=== PATIENT | male | born 1950 | race Caucasian/White ===

== ENCOUNTER → 2016-12-29 | Outpatient (CLI) | payer MEDICARE, MEDICAID | LOC: RAD 13:38 | PROVIDERS: ATTEND Internal Medicine | DX: R91.1 Solitary pulmonary nodule (principal) | CPT/HCPCS: 78814; A9552 ==

== ENCOUNTER → 2017-01-29 | Outpatient (CLI) | payer MEDICARE, MEDICAID | LOC: RAD 09:35 | PROVIDERS: ATTEND Internal Medicine Medical Oncology | DX: C34.91 Malignant neoplasm of unspecified part of right bronchus or lung (principal) | CPT/HCPCS: 70553; A9577 ==

== ENCOUNTER 2017-03-09 18:16 | Emergency (ER) | payer MEDICARE, MEDICAID ==
[2017-03-09] MEDS ORDERED: LIDOCAINE 1% INJ-PF (10 MG/ML) 30 ML SDV INJ ONE (18:44)
[2017-03-09] MEDS ORDERED: AMOXICILLIN TRIHYD 250 MG CAPSULE PO ONE (18:44)
[2017-03-09] MEDS ORDERED: AMOXICILLIN TR/POT CLAVULANATE 500-125 MG TAB PO ONE (18:44)
--- NOTE | 2017-03-09 18:49 | ER Document Report ---
ED Animal Bite - General Chief Complaint: Dog Bite Stated Complaint: DOG ATTACK Time Seen by Provider: 03/09/17 18:28 Mode of Arrival: Ambulatory Information source: Patient Notes: States that his granddaughter just got a dog from his nephew and the dog was on a chain that was tangled up. Patient went to untangle the dog and the dog attacked him. Patient with lacerations to left forearm, left hand and right hand. Patient does state his tetanus immunization was 2 years ago. Pt is uncertain of the dog's immunization status but states that the dog otherwise appeared well. TRAVEL OUTSIDE OF THE [place] IN LAST 30 DAYS: No - HPI Location of injury: [place] Severity of injury: Scratched, Bitten Onset: Just prior to arrival Quality of pain: Achy Pain Level: 3 Severity: Moderate Context of attack: Approached animal Type of animal: Dog Appearance of animal: Appeared well Animal's immunizations: Unknown Animal captured or known: Yes Animal control form completed: Yes - Related Data Allergies/Adverse Reactions: No Known Allergies Allergy (Verified 03/09/17 18:21) Past Medical History - General Information source: Patient, Relative - Social History Smoking Status: Current Every Day Smoker Frequency of alcohol use: None Drug Abuse: None Occupation: none Lives with: Spouse/Significant other Family History: Reviewed & Not Pertinent Patient has suicidal ideation: No Patient has homicidal ideation: No Pulmonary Medical History: Reports: Hx Asthma, Hx COPD Renal/ Medical History: Denies: Hx Peritoneal Dialysis Malignancy Medical History: 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 denies: Fever EENT: No symptoms reported Cardiovascular: No symptoms reported. denies: Chest pain Respiratory: Cough. denies: Short of breath Gastrointestinal: No symptoms reported. denies: Nausea, Vomiting Genitourinary: No symptoms reported Male Genitourinary: No symptoms reported Musculoskeletal: No symptoms reported Skin: Other - Laceration to bilateral upper extremities Hematologic/Lymphatic: No symptoms reported Neurological/Psychological: No symptoms reported Physical Exam - Vital signs Vitals: Temp Pulse Resp BP Pulse Ox 98.2 F 100 18 143/79 H 94 03/09/17 18:21 03/09/17 18:21 03/09/17 18:21 03/09/17 18:21 03/09/17 18:21 - General General appearance: Appears well, Alert In distress: None - HEENT Head: Normocephalic Nasal: Normal Mouth/Lips: Normal - Respiratory Respiratory status: No respiratory distress - Cardiovascular Rhythm: Regular Heart sounds: S1 appreciated, S2 appreciated Pulses: Normal: Radial - Extremities General upper extremity: Normal ROM, Other - lac to bilat hand and left forearm General lower extremity: Normal inspection, Normal ROM Forearm: Tender - left forearm lace, Laceration. No: Deformity, Ecchymosis Wrist: Normal, Nontender Hand: Tender, Laceration - to webspace of left hand between 2 and 3rd fingers, lac to dorsal aspect of r 3rd finger over proximal phalanx - Neurological Neuro grossly intact: Yes Cognition: Normal Orientation: AAOx4 Marge Coma Scale Eye Opening: Spontaneous Marge Coma Scale Verbal: Oriented [place] Coma Scale Motor: Obeys Commands [place] Coma Scale Total: 15 Additional motor exam normals: Equal training assistant - Psychological Associated symptoms: Normal affect, Normal mood - Skin Skin Temperature: Warm Skin Moisture: Dry Skin irregularity: Laceration - left forearm 6 cm lac, 2 cm lac to left hand between 2nd and 3rd fingers, irregular 1.5 cm lac to right 3rd finger Course - Re-evaluation Re-evalutation: 03/09/17 19:[address] Lynn regarding patient presentation, does agree with plan to suture wounds so that they may heal by secondary intention 03/09/17 21:29 Patient given good return precautions and discussed worsening signs or symptoms that patient should return immediately for. Patient advised that he will need to return tomorrow for a wound recheck. Patient verbalized understanding and agrees with plan to return tomorrow evening. Patient also advised that he should follow-up with animal control regarding immunization status of the animal. If patient needs to receive the rabies vaccine and immunoglobulin patient has been advised to return to the emergency department for these medications. - Vital Signs Vital signs: Temp Pulse Resp BP Pulse Ox 98.2 F 100 18 143/79 H 94 03/09/17 18:21 03/09/17 18:21 03/09/17 18:21 03/09/17 18:21 03/09/17 18:21 - Diagnostic Test Radiology reviewed: Reports reviewed Procedures - Laceration/Wound Repair Left Arm Wound length (cm): 6 Wound's Depth, Shape: Linear Laceration pre-procedure: Other - chlorhexadine Anesthetic type: 1% Lidocaine Volume Anesthetic (mLs): 2 Wound explored: No foreign body removed Irrigated w/ Saline (mLs): 1,100 Wound Debrided: Minimal Wound Repaired With: Sutures Suture Size/Type: 5:0, Nylon Number of Sutures: 3 Layer Closure?: No Post-procedure wound care: Sterile dressing applied Post-procedure NV exam normal: Yes Complications: No Notes: 03/09/17 21:45 Laceration edges loosely sutured so that wound may heal by secondary intention to left forearm Adult Front & Back picture: 1 - 6 cm laceration Left Hand Wound length (cm): 2 Wound's Depth, Shape: Irregular Laceration pre-procedure: Other - chlorhexadine Anesthetic type: 1% Lidocaine Volume Anesthetic (mLs): 1 Wound explored: No foreign body removed Irrigated w/ Saline (mLs): 1,100 Wound Debrided: Minimal Wound Repaired With: Sutures Suture Size/Type: 5:0, Nylon Number of Sutures: 2 Layer Closure?: No Post-procedure wound care: Sterile dressing applied Post-procedure NV exam normal: Yes Complications: No Notes: 03/09/17 21:50 wound loosely sutured so that wound may heal by secondary intention Hands back picture: 1 - irregular 2 cm lac Right Hand Wound length (cm): 1.5 Wound's Depth, Shape: Irregular, Flap Laceration pre-procedure: Other - chlorhexadine Wound explored: No foreign body removed Irrigated w/ Saline (mLs): 1,000 Wound Repaired With: Steri-strips Layer Closure?: No Post-procedure wound care: Sterile dressing applied Post-procedure NV exam normal: Yes Complications: No Hands back picture: 1 - irregular flap laceration Discharge - Discharge Clinical Impression: Dog bite Qualifiers: Encounter type: initial encounter Qualified Code(s): W54.0XXA - Bitten by dog, initial encounter Laceration of left forearm Qualifiers: Encounter type: initial encounter Qualified Code(s): S51.812A - Laceration without foreign body of left forearm, initial encounter Laceration of left hand Qualifiers: Encounter type: initial encounter Foreign body presence: without foreign body Qualified Code(s): S61.412A - Laceration without foreign body of left hand, initial encounter Laceration of right hand Qualifiers: Encounter type: initial encounter Foreign body presence: without foreign body Qualified Code(s): S61.411A - Laceration without foreign body of right hand, initial encounter Condition: Stable Disposition: HOME, SELF-CARE Instructions: Prophylactic Antibiotic ([facility]), Laceration Care ([facility]), Augmentin ( [facility]) Additional Instructions: Return immediately for any signs of infection, redness, swelling, increased pain or fever. Return tomorrow for a wound recheck. Your blood pressure was mildly elevated today, your primary doctor will need to recheck this next week Follow-up with animal control regarding the immunization status of the animal. If you are required to receive the rabies vaccination series return to the emergency department for this medication. Prescriptions: Amox Tr/Potassium Clavulanate [Augmentin 875-125 Tablet] 1 tab PO BID 10 Days Referrals: [facility] [Provider Group] - Follow up as needed CADE SINGLETON MD [ACTIVE STAFF] - Follow up as needed
--- NOTE | 2017-03-09 19:45 | RADIOLOGY REPORT (SQ) ---
EXAM DESCRIPTION: FOREARM LEFT COMPLETED DATE/TIME: 03/09/2017 7:00 pm REASON FOR STUDY: animal bite COMPARISON: None. NUMBER OF VIEWS: Two views. TECHNIQUE: Two radiographic images acquired of the left forearm, including elbow and wrist in at [address] one projection. LIMITATIONS: None. FINDINGS: MINERALIZATION: Normal. BONES: No acute fracture. No worrisome bone lesions. SOFT TISSUES: No obvious swelling or foreign body. OTHER: No other significant finding. IMPRESSION: No fracture or radiopaque foreign body. TECHNICAL DOCUMENTATION: JOB ID: [id number] [employer]- All Rights Reserved
--- NOTE | 2017-03-09 19:48 | RADIOLOGY REPORT (SQ) ---
EXAM DESCRIPTION: HAND BILATERAL 3 VIEWS COMPLETED DATE/TIME: 03/09/2017 7:00 pm REASON FOR STUDY: animal bite COMPARISON: None. EXAM PARAMETERS: NUMBER OF VIEWS: Three views right hand. Three views left hand. TECHNIQUE: AP, lateral and oblique radiographic images acquired of bilateral hands. LIMITATIONS: None. FINDINGS: RIGHT HAND: MINERALIZATION: Normal. BONES: No acute fracture or dislocation. No worrisome bone lesions. No significant osteophytes. JOINTS: No erosions. No manuela-articular osteopenia. No chondrocalcinosis. SOFT TISSUES: No significant swelling. No calcifications. OTHER: No other significant finding. LEFT HAND: MINERALIZATION: Normal. BONES: No acute fracture or dislocation. No worrisome bone lesions. No significant osteophytes. JOINTS: No erosions. No manuela-articular osteopenia. No chondrocalcinosis. SOFT TISSUES: No significant swelling. No calcifications. OTHER: No other significant finding. IMPRESSION: No fracture or radiopaque foreign body. TECHNICAL DOCUMENTATION: JOB ID: [id number] [employer]- All Rights Reserved
[2017-03-09 22:08] VITALS: BP 140/80
== END 2017-03-09 21:55 | disposition home or self-care (01) ==
LOC: ER 18:16
PROC: 0HQGXZZ Repair Left Hand Skin, External Approach (ICD-10-PCS; principal; 2017-03-09)
PROC: 0HQEXZZ Repair Left Lower Arm Skin, External Approach (ICD-10-PCS; 2017-03-09)
DX: S51.812A Laceration without foreign body of left forearm, initial encounter (principal); S61.412A Laceration without foreign body of left hand, initial encounter; S61.411A Laceration without foreign body of right hand, initial encounter; W54.0XXA Bitten by dog, initial encounter; C34.90 Malignant neoplasm of unspecified part of unspecified bronchus or lung; F17.200 Nicotine dependence, unspecified, uncomplicated; J45.909 Unspecified asthma, uncomplicated; J44.9 Chronic obstructive pulmonary disease, unspecified
CPT/HCPCS: 99283; 73090; 73130; 12004; A9270 ×2; J3490

== ENCOUNTER 2017-03-10 19:55 | Emergency (ER) | payer MEDICARE, MEDICAID ==
[2017-03-10 20:37] VITALS: BP 145/91
[2017-03-10] MEDS ORDERED: OXYCODONE-ACETAMINOPHEN 5-325 MG TABLET PO ONE (22:50)
--- NOTE | 2017-03-10 23:05 | ER Document Report ---
ED General - General Chief Complaint: Wound Recheck Stated Complaint: DOG BITE RECHECK Time Seen by Provider: 03/10/17 21:16 Mode of Arrival: Ambulatory Information source: Patient Notes: 67-year-old male presents with complaints of dog bite and low back pain. Patient notes he was seen yesterday had sutures placed for the dog bite. Patient states he fell on his buttocks and now has back pain which he did not have yesterday TRAVEL OUTSIDE OF THE [place] IN LAST 30 DAYS: No - HPI Onset: Yesterday Onset/Duration: Sudden Quality of pain: Achy Severity: Mild Pain Level: 1 Associated symptoms: Other Exacerbated by: Denies Relieved by: Denies Similar symptoms previously: Yes Recently seen / treated by doctor: Yes - Related Data Allergies/Adverse Reactions: No Known Allergies Allergy (Verified 03/10/17 20:32) Past Medical History - Social History Smoking Status: Never Smoker Cigarette use (# per day): No Chew tobacco use (# tins/day): No Smoking Education Provided: No Family History: Reviewed & Not Pertinent Pulmonary Medical History: Reports: Hx Asthma, Hx COPD Renal/ Medical History: Denies: Hx Peritoneal Dialysis Malignancy Medical History: 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 Denies recent illness. EENT: Denies eye, ear, throat, or mouth pain or symptoms. Denies nasal or sinus congestion or discharge. Denies throat, tongue, or mouth swelling or difficulty swallowing. CARDIOVASCULAR: Denies chest pain. Denies palpitations or racing or irregular heart beat. Denies ankle edema. RESPIRATORY: Denies cough, cold, or chest congestion. Denies shortness of breath, difficulty breathing, or wheezing. GASTROINTESTINAL: Denies abdominal pain or distention. Denies nausea, vomiting , or diarrhea. Denies blood in vomitus, stools, or per rectum. Denies black, tarry stools. Denies constipation. GENITOURINARY: Denies difficulty urinating, painful urination, burning, frequency, blood in urine, or discharge. MUSCULOSKELETAL: Admits to low back SKIN: Dog bite to left hand forearm right hand HEMATOLOGIC : Denies easy bruising or bleeding. LYMPHATIC: Denies swollen, enlarged glands. NEUROLOGICAL: Denies confusion or altered mental status. Denies passing out or loss of consciousness. Denies dizziness or lightheadedness. Denies headache. Denies weakness or paralysis or loss of use of either side. Denies problems with gait or speech. Denies sensory loss, numbness, or tingling. Denies seizures. PSYCHIATRIC: Denies anxiety or stress. Denies depression, suicidal ideation, or homicidal ideation. ALL OTHER SYSTEMS REVIEWED AND NEGATIVE. Dictation was performed using [employer] voice recognition software PHYSICAL EXAMINATION: GENERAL: Well-appearing, well-nourished and in no acute distress. HEAD: Atraumatic, normocephalic. EYES: Pupils equal round and reactive to light, extraocular movements intact, sclera anicteric, conjunctiva are normal. ENT: Nares patent, oropharynx clear without exudates. Moist mucous membranes. NECK: Normal range of motion, supple without lymphadenopathy LUNGS: Breath sounds clear to auscultation bilaterally and equal. No wheezes rales or rhonchi. HEART: Regular rate and rhythm without murmurs ABDOMEN: Soft, nontender, nondistended abdomen. No guarding, no rebound. No masses appreciated. Musculoskeletal: Normal range of motion, no pitting or edema. No cyanosis. NEUROLOGICAL: Cranial nerves grossly intact. Normal speech, normal gait. Normal sensory, motor exams PSYCH: Normal mood, normal affect. SKIN: Sutures in place of the left hand forearm right hand no signs of infection at this time Physical Exam - Vital signs Vitals: Temp Pulse Resp BP Pulse Ox 98.5 F 102 H 16 145/91 H 95 03/10/17 20:34 03/10/17 20:34 03/10/17 20:34 03/10/17 20:34 03/10/17 20:34 Course - Re-evaluation Re-evalutation: 03/11/17 03:44 The lacerations do not appear to be infected however it has only been 1 day since sutures were placed, very strict return precautions are provided regarding this given that it is a dog bite and can definitely get infected.. X- ray was performed to the back given the patient been able to ambulate has had no difficulty doing so yesterday and is now sore today I believe this is just a contusion as the imaging was negative After performing a Medical Screening Examination, I estimate there is LOW risk for OPEN FRACTURE, COMPARTMENT SYNDROME, TENDON RUPTURE, ACUTE NEUROVASCULAR INJURY, or RETAINED FOREIGN BODY, thus I consider the discharge disposition reasonable. Also, there is no evidence or peritonitis, sepsis, or toxicity. I have reevaluated this patient multiple times and no significant life threatening changes are noted. The patient and I have discussed the diagnosis and risks, and we agree with discharging home with close follow-up with the understanding that symptoms and presentations can change. We also discussed returning to the Emergency Department immediately if new or worsening symptoms occur. We have discussed the symptoms which are most concerning (e.g., changing or worsening pain, fever, numbness, weakness, cool or painful digits) that necessitate immediate return. - Vital Signs Vital signs: Temp Pulse Resp BP Pulse Ox 98.5 F 102 H 16 145/91 H 95 03/10/17 20:34 03/10/17 20:34 03/10/17 20:34 03/10/17 20:34 03/10/17 20:34 - Diagnostic Test Radiology reviewed: Image reviewed, Reports reviewed - No acute abnormality report given to patient Discharge - Discharge Clinical Impression: Dog bite Qualifiers: Encounter type: initial encounter Qualified Code(s): W54.0XXA - Bitten by dog, initial encounter Back pain Qualifiers: Back pain location: low back pain Chronicity: acute Back pain laterality: bilateral Sciatica presence: without sciatica Qualified Code(s): M54.5 - Low back pain Condition: Stable Disposition: HOME, SELF-CARE Instructions: Low Back Pain ([facility]) Prescriptions: Oxycodone HCl/Acetaminophen [Percocet 5-325 mg Tablet] 1 - 2 tab PO Q4H PRN #15 tablet PRN Reason: Referrals: ABI SONI MD [Primary Care Provider] - Follow up in 3-5 days
--- NOTE | 2017-03-10 23:56 | RADIOLOGY REPORT (SQ) ---
EXAM DESCRIPTION: L SPINE WHOLE COMPLETED DATE/TIME: 03/10/2017 11:45 pm REASON FOR STUDY: fall COMPARISON: None. NUMBER OF VIEWS: Five views including obliques. TECHNIQUE: AP, lateral, oblique, and sacral radiographic images acquired of the lumbar spine. LIMITATIONS: None. FINDINGS: MINERALIZATION: Normal. SEGMENTATION: Normal. No transitional anatomy. ALIGNMENT: Normal. VERTEBRAE: Maintained height. No fracture or worrisome bone lesion. Very mild marginal osteophyte o n the basis of spondylotic change. DISCS: Largely preserved height. POSTERIOR ELEMENTS: Pedicles and facets are intact. No pars defect or posterior arch defects. Lumbo sacral facet arthropathy. HARDWARE: None in the spine. PARASPINAL SOFT TISSUES: Normal. PELVIS: Intact as visualized. No fractures or worrisome bone lesions. SI joints intact. OTHER: No other significant finding. IMPRESSION: Very mild spondylotic change. No evidence of acute injury. TECHNICAL DOCUMENTATION: JOB ID: [id number] [employer]- All Rights Reserved
== END 2017-03-11 00:17 | disposition home or self-care (01) ==
LOC: ER 19:55
DX: S31.0 Open wound of lower back and pelvis (principal); M54.5 Low back pain; W54.0XXD Bitten by dog, subsequent encounter
CPT/HCPCS: 72110; 99283

== ENCOUNTER → 2017-06-17 | Outpatient (CLI) | payer MEDICARE, MEDICAID ==
--- NOTE | 2017-06-18 08:23 | RADIOLOGY REPORT (SQ) ---
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 TECHNIQUE: Blood glucose level was verified. Above dose of FDG was injected intravenously. 2-D seg mented attenuation correction images were obtained from the base of the skull to the midthighs. Nonc ontrast CT images were obtained for attenuation correction and fusion with emission images. CT image s were performed without oral or intravenous contrast and are not sensitive for parenchymal lesions. A series of overlapping emission PET images were obtained. Images reviewed and manipulated at [facility] work station by the radiologist. Images stored on PACS. LIMITATIONS: Unable to raise arms. FINDINGS: HEAD AND NECK: No areas of abnormal metabolic activity in the soft tissues of the head and neck. CHEST: No areas of abnormal metabolic activity in the chest. Posterior right upper lobe nodule has d ecreased in size to about 6 mm and is not hypermetabolic. Hypermetabolic mediastinal nodes have reso lved. ABDOMEN AND PELVIS: No areas of abnormal metabolic activity in the abdomen or pelvis. Expected physi ologic activity is present in the genitourinary system and bowel. PROXIMAL LOWER EXTREMITIES: No areas of abnormal metabolic activity in the soft tissues of the lower extremities. BONES: No abnormal metabolic activity in the visualized skeleton. ADDITIONAL CT FINDINGS: No additional significant findings on the noncontrast CT images. OTHER: No other significant findings. IMPRESSION: Favorable response to therapy. TECHNICAL DOCUMENTATION: JOB ID: [id number]- All Rights Reserved
== END ==
LOC: RAD 14:29
PROVIDERS: ATTEND Internal Medicine Medical Oncology
DX: C34.91 Malignant neoplasm of unspecified part of right bronchus or lung (principal)
CPT/HCPCS: 78815; A9552

== ENCOUNTER → 2018-01-02 | Outpatient (CLI) | payer MEDICARE, MEDICAID ==
--- NOTE | 2018-01-02 12:23 | RADIOLOGY REPORT (SQ) ---
EXAM DESCRIPTION: CHEST PA/LATERAL COMPLETED DATE/TIME: 01/02/2018 10:29 am REASON FOR STUDY: SMALL CELL LUNG CANCER,RIGHT C34.91 MALIGNANT NEOPLASM OF UNSP PART OF RIGHT BRON CHUS OR COMPARISON: 2011. NUMBER OF VIEWS: Two view. TECHNIQUE: Frontal and lateral radiographic views of the chest acquired. LIMITATIONS: None. FINDINGS: LUNGS AND PLEURA: No opacities, masses or pneumothorax. No pleural effusion. Attenuated bl ood vessels and flattened axel-diaphragms. MEDIASTINUM AND HILAR STRUCTURES: No masses. No contour abnormalities. HEART AND VASCULAR STRUCTURES: Heart normal in size and contour. No evidence for failure. BONES: No acute findings. HARDWARE: None in the chest. OTHER: No other significant finding. IMPRESSION: COPD. NO ACUTE RADIOGRAPHIC FINDING IN THE CHEST. TECHNICAL DOCUMENTATION: JOB ID: [id number] [employer]- All Rights Reserved Reading location - IP/workstation name: [email or web address]
== END ==
LOC: OD 10:12
PROVIDERS: ATTEND Internal Medicine Medical Oncology
DX: C34.91 Malignant neoplasm of unspecified part of right bronchus or lung (principal); E53.8 Deficiency of other specified B group vitamins
CPT/HCPCS: 71046

== ENCOUNTER 2018-01-09 08:55 | Day surgery (SDC) | payer MEDICARE, MEDICAID ==
[~2018-01-09 08:55] MED LIST: KETOROLAC TROMETHAMINE 0.45% 4 DROP/0.4 ML DROPERETTE OD PRN
[2018-01-09] MEDS: CYCLOPENTOLATE 0.2%/PHENYLEPHRINE 1% OPH SOLN 2 ML OD PRN ×3 (09:03→09:30)
[2018-01-09] MEDS: TROPICAMIDE 1% OPH SOLN 3 ML OD PRN ×3 (09:03→09:30)
[2018-01-09] MEDS: BESIFLOXACIN HCL 0.6% OPH SUSP 5 ML BOTTLE OD PRN ×3 (09:04→10:11)
[2018-01-09] MEDS: TETRACAINE HCL 0.5% OPH SOLN 0.6 ML DROPERETTE OD PRN ×3 (09:05→09:50)
[2018-01-09] MEDS ORDERED: LIDOCAINE 1% INJ-PF (10 MG/ML) 30 ML SDV ONE (09:10)
[2018-01-09] MEDS ORDERED: EPINEPHRINE INJ/PF 1 MG/1 ML AMPULE ONE (09:10)
[2018-01-09] MEDS ORDERED: CHONDR SU A NA/HYALUR INTRAOC KIT (SURGICARE) ONE (09:10)
[2018-01-09] MEDS ORDERED: TOBRAMYCIN SULFATE/DEXAMETH OPH OINTMENT 3.5 GM ONE (09:10)
[2018-01-09] MEDS ORDERED: MIDAZOLAM 2 MG/2 ML INJ ONE (09:31)
[2018-01-09] MEDS ORDERED: FENTANYL CITRATE INJ/PF 100 MCG/2 ML AMPUL ONE (09:32)
[2018-01-09] MEDS ORDERED: ONDANSETRON HCL INJ/PF 4 MG/2 ML SDV ONE (09:32)
== END 2018-01-09 10:49 | disposition home or self-care (01) ==
LOC: SC 08:55
PROVIDERS: ATTEND Ophthalmology
DX: H25.11 Age-related nuclear cataract, right eye (principal); F17.210 Nicotine dependence, cigarettes, uncomplicated; J44.9 Chronic obstructive pulmonary disease, unspecified; Z85.118 Personal history of other malignant neoplasm of bronchus and lung
CPT/HCPCS: 66984; V2630; J2250; J3490 ×3; A9270; J0171; J3010; J2405; 142

== ENCOUNTER 2018-01-23 07:45 | Day surgery (SDC) | payer MEDICARE, MEDICAID ==
[~2018-01-23 07:45] MED LIST changes: -KETOROLAC TROMETHAMINE 0.45% 4 DROP/0.4 ML DROPERETTE OD PRN; +KETOROLAC TROMETHAMINE 0.45% 4 DROP/0.4 ML DROPERETTE OS PRN
[2018-01-23] MEDS ORDERED: EPINEPHRINE INJ/PF 1 MG/1 ML AMPULE ONE (08:06)
[2018-01-23] MEDS ORDERED: TOBRAMYCIN SULFATE/DEXAMETH OPH OINTMENT 3.5 GM ONE (08:07)
[2018-01-23] MEDS ORDERED: CHONDR SU A NA/HYALUR INTRAOC KIT (SURGICARE) ONE (08:07)
[2018-01-23] MEDS ORDERED: LIDOCAINE 1% INJ-PF (10 MG/ML) 30 ML SDV ONE (08:07)
[2018-01-23] MEDS: TETRACAINE HCL 0.5% OPH SOLN 0.6 ML DROPERETTE OS PRN ×4 (08:07→09:02)
[2018-01-23] MEDS: TROPICAMIDE 1% OPH SOLN 3 ML OS PRN ×3 (08:08→08:38)
[2018-01-23] MEDS: CYCLOPENTOLATE 0.2%/PHENYLEPHRINE 1% OPH SOLN 2 ML OS PRN ×3 (08:08→08:38)
[2018-01-23] MEDS: BESIFLOXACIN HCL 0.6% OPH SUSP 5 ML BOTTLE OS PRN ×2 (08:09→09:22)
[2018-01-23] MEDS ORDERED: MIDAZOLAM 2 MG/2 ML INJ ONE ×2 (08:42)
== END 2018-01-23 10:00 | disposition home or self-care (01) ==
LOC: SC 07:45
PROVIDERS: ATTEND Ophthalmology
DX: H25.12 Age-related nuclear cataract, left eye (principal); Z98.41 Cataract extraction status, right eye; J44.9 Chronic obstructive pulmonary disease, unspecified; F17.210 Nicotine dependence, cigarettes, uncomplicated; E66.9 Obesity, unspecified; Z85.118 Personal history of other malignant neoplasm of bronchus and lung; Z68.35 Body mass index [BMI] 35.0-35.9, adult
CPT/HCPCS: 66984; V2630; J2250; J3490 ×3; A9270; J0171; 142

== ENCOUNTER → 2018-08-05 | Outpatient (CLI) | payer MEDICARE, MEDICAID ==
--- NOTE | 2018-08-05 14:50 | RADIOLOGY REPORT (SQ) ---
EXAM DESCRIPTION: CHEST PA/LATERAL COMPLETED DATE/TIME: 08/05/2018 9:53 am REASON FOR STUDY: MALIGNANT NEOPLASM OF UNSP PART OF RIGHT BRONCHUS OR LUNG COMPARISON: March 2012 EXAM PARAMETERS: NUMBER OF VIEWS: two views TECHNIQUE: Digital Frontal and Lateral radiographic views of the chest acquired. RADIATION DOSE: NA LIMITATIONS: none FINDINGS: LUNGS AND PLEURA: No opacities, masses or pneumothorax. No pleural effusion. Again I chris ot exclude a component of obstructive lung disease. MEDIASTINUM AND HILAR STRUCTURES: No masses or contour abnormalities. HEART AND VASCULAR STRUCTURES: Heart normal size. No evidence for failure. BONES: No acute findings. HARDWARE: None in the chest. OTHER: No other significant finding. IMPRESSION: NO SIGNIFICANT RADIOGRAPHIC FINDING IN THE CHEST. TECHNICAL DOCUMENTATION: JOB ID: [id number] [employer]- All Rights Reserved Reading location - IP/workstation name: [email or web address]
== END ==
LOC: OD 09:40
PROVIDERS: ATTEND Internal Medicine Medical Oncology
DX: C34.91 Malignant neoplasm of unspecified part of right bronchus or lung (principal)
CPT/HCPCS: 71046

== ENCOUNTER → 2019-03-26 | Outpatient (CLI) | payer MEDICARE, MEDICAID ==
--- NOTE | 2019-03-26 08:12 | RADIOLOGY REPORT (SQ) ---
EXAM DESCRIPTION: CHEST PA/LATERAL COMPLETED DATE/TIME: 03/26/2019 7:42 am REASON FOR STUDY: MALIGNANT NEOPLASM OF UNSP PART OF RIGHT BRONCHUS OR LUNG COMPARISON: Chest films 08/05/2018, 01/02/2018, 06/17/2017 PET-CT EXAM PARAMETERS: NUMBER OF VIEWS: two views TECHNIQUE: Digital Frontal and Lateral radiographic views of the chest acquired. RADIATION DOSE: NA LIMITATIONS: none FINDINGS: LUNGS AND PLEURA: Lungs are hyperinflated from obstructive disease. No acute infiltrates. No pleural effusion or pneumothorax. MEDIASTINUM AND HILAR STRUCTURES: No masses or contour abnormalities. HEART AND VASCULAR STRUCTURES: Heart normal size. No evidence for failure. BONES: No acute findings. HARDWARE: None in the chest. OTHER: No other significant finding. IMPRESSION: Hyperinflation from obstructive disease. No acute infiltrates. TECHNICAL DOCUMENTATION: JOB ID: [id number] [employer]- All Rights Reserved Reading location - IP/workstation name: [email or web address]
== END ==
LOC: OD 07:17
PROVIDERS: ATTEND Internal Medicine Medical Oncology
DX: C34.91 Malignant neoplasm of unspecified part of right bronchus or lung (principal)
CPT/HCPCS: 71046

== ENCOUNTER 2019-04-05 21:23 | Emergency (ER) | payer MEDICARE, MEDICAID ==
--- NOTE | 2019-04-05 22:19 | ER Document Report ---
ED GI/ - General Chief Complaint: Urinary Problem Stated Complaint: BLOOD IN URINE Time Seen by Provider: 04/05/19 22:09 Primary Care Provider: CADE SINGLETON MD [Primary Care Provider] - Follow up as needed Notes: Patient is a 69 year old male that comes to the emergency department for chief complaint of blood in his urine. That he noticed this starting yesterday, today he passed a clot and became more concerned. He states he has had some lower back pain on both sides for the past couple of days as well. He denies abdominal pain, nausea/vomiting, fever/chills. He denies dysuria or difficulty urinating. He is not on blood thinner. He denies history of the same. He has a history of small cell carcinoma of the lung, status post chemo and radiation, currently believed to be in remission. He is a smoker. He denies any other medical history, does not take any medications. at bedside. TRAVEL OUTSIDE OF THE [place] IN LAST 30 DAYS: No - Related Data Allergies/Adverse Reactions: No Known Allergies Allergy (Verified 03/10/17 20:32) Past Medical History - General Information source: Patient - Social History Smoking Status: Current Every Day Smoker Smoking Education Provided: Yes - <3 min Drug Abuse: None Lives with: Spouse/Significant other Family History: Reviewed & Not Pertinent - Past Medical History Cardiac Medical History: Denies: Hx Heart Attack, Hx Hypertension Pulmonary Medical History: Reports: Hx COPD Denies: Hx Asthma Neurological Medical History: Denies: Hx Cerebrovascular Accident, Hx Seizures Renal/ Medical History: Denies: Hx Peritoneal Dialysis Malignancy Medical History: Reports Hx Lung Cancer - small cell, s/p radiation and chemo GI Medical History: Denies: Hx Hepatitis, Hx Hiatal Hernia, Hx Ulcer Musculoskeletal Medical History: Reports Hx Arthritis Psychiatric Medical History: Reports: Hx Anxiety Infectious Medical History: Denies: Hx Hepatitis Past Surgical History: Reports: Hx Appendectomy, Hx Orthopedic Surgery - PIN R LEG, Hx Tonsillectomy. Denies: Hx Open Heart Surgery, Hx Pacemaker - Immunizations Hx Diphtheria, Pertussis, Tetanus Vaccination: No - GIVEN 03/30/15 Review of Systems - Review of Systems Constitutional: No symptoms reported EENT: No symptoms reported Cardiovascular: No symptoms reported Respiratory: No symptoms reported Gastrointestinal: No symptoms reported Genitourinary: See HPI Male Genitourinary: No symptoms reported Musculoskeletal: No symptoms reported Skin: No symptoms reported Hematologic/Lymphatic: No symptoms reported Neurological/Psychological: No symptoms reported Physical Exam - Vital signs Vitals: Temp Pulse Resp BP Pulse Ox 97.7 F 75 20 141/77 H 96 04/05/19 21:31 04/05/19 21:31 04/05/19 21:31 04/05/19 21:31 04/05/19 21:31 - Notes Notes: GENERAL: Alert, interacts well. No acute distress. HEAD: Normocephalic, atraumatic. EYES: Pupils equal, round, and reactive to light. Extraocular movements intact. ENT: Oral mucosa moist, tongue midline. Oropharynx unremarkable. Airway patent. LUNGS: Clear to auscultation bilaterally, no wheezes, rales, or rhonchi. No respiratory distress. HEART: Regular rate and rhythm. No murmur ABDOMEN: Soft, non-tender. Non-distended. Bowel sounds present in all 4 quadrants. GENITOURINARY: No swelling, tenderness, lesion, or other abnormality noted. EXTREMITIES: Moves all 4 extremities spontaneously. No edema, normal radial and dorsalis pedis pulses bilaterally. No cyanosis. BACK: no cervical, thoracic, lumbar midline tenderness. No saddle anesthesia, normal distal neurovascular exam. Moves all extremities in full range of motion. NEUROLOGICAL: Alert and oriented x3. Normal speech. Cranial nerves II through XII grossly intact. PSYCH: Normal affect, normal mood. SKIN: Warm, dry, normal turgor. No rashes or lesions noted. Course - Re-evaluation Re-evalutation: Physical exam is completely unremarkable. Vital signs unremarkable. CBC unremarkable. Chemistry unremarkable. Urinalysis does show a large amount of hematuria, few white blood cells, no leukocyte esterase, no bacteria, no nitrites. Culture placed. Patient does not have dysuria, abdominal pain, or CVA tenderness. CT was performed but does not show any source of the hematuria. No acute findings on CAT scan. Discussed this with patient and significant other in detail. I discussed the importance of close urology follow-up for possibility of a cystic lesion causing the hematuria and the potential for cancer especially given patient's age, smoking history, symptoms, negative work-up. They state that they will call on Sunday and perform immediate follow-up. Discussed return precautions in detail. They state understanding and agreement. - Vital Signs Vital signs: Temp Pulse Resp BP Pulse Ox 97.4 F 72 20 149/83 H 96 04/06/19 01:03 04/06/19 01:03 04/06/19 01:03 04/06/19 01:03 04/06/19 01:03 - Laboratory Result Diagrams: 04/05/19 23:05 04/05/19 23:05 Laboratory results interpreted by me: 04/05/19 04/05/19 22:03 23:05 Sodium 135.3 L AST 13 L ALT 18 L Total Protein 6.2 L Urine Protein 30 H Urine Blood LARGE H Urine Urobilinogen 2.0 H Discharge - Discharge Clinical Impression: Hematuria Qualifiers: Hematuria type: gross Qualified Code(s): R31.0 - Gross hematuria Condition: Stable Disposition: HOME, SELF-CARE Additional Instructions: Your laboratory work-up and imaging do not show any concerning findings. Please call the urology referral listed below on Sunday for close follow-up. It is important that you do follow-up closely, we do not want to miss and delay care of a potentially cancerous lesion that is bleeding from your bladder. Return if you worsen in any way including inability to urinate, development pain, vomiting, fever, or any other concerning symptoms. [facility] [address] [place], [place] [id number] [facility] [address] [place], [place] [id number] Adelita Robin MD Doctor in [place], [place] Address: [address] [place], [place] [address] [address], [place] [address] Referrals: CADE SINGLETON MD [Primary Care Provider] - Follow up as needed
[2019-04-05 23:15] LABS: APPEARANCE,URINE SLIGHTLY-CLOUDY; BILIRUBIN,URINE NEGATIVE (NEGATIVE); COLOR,URINE YELLOW; GLUCOSE, URINE NEGATIVE (NEGATIVE); KETONES,URINE NEGATIVE (NEGATIVE); LEUKOCYTE ESTERASE,URINE NEGATIVE (NEGATIVE); NITRITE,URINE NEGATIVE (NEGATIVE); PROTEIN,URINE 30 mg/dL (NEGATIVE); URINE SPECIFIC GRAVITY 1.018
[2019-04-05 23:15] LABS: ABSOLUTE BASOPHILS # (AUTO) 0.1 10^3/uL (0.0-0.2); ABSOLUTE EOSINOPHILS # (AUTO) 0.2 10^3/uL (0.0-0.6); ABSOLUTE LYMPHOCYTES (AUTO) 1.9 10^3/uL (0.5-4.7); ABSOLUTE MONOCYTES (AUTO) 0.5 10^3/uL (0.1-1.4); BASOPHILS % (AUTO) 0.9 % (0-2); EOSINOPHILS % (AUTO) 2.8 % (0-6); HEMATOCRIT 43.1 % (37.9-51.0); HEMOGLOBIN 14.8 g/dL (13.5-17.0); LYMPHOCYTES % (AUTO) 28.1 % (13-45); MEAN CORPUSCULAR HEMOGLOBIN 30.6 pg (27.0-33.4); MEAN CORPUSCULAR HGB CONC 34.4 g/dL (32.0-36.0); MEAN CORPUSCULAR VOLUME 89 fl (80-97); PLATELET COUNT 242 10^3/uL (150-450); RED BLOOD COUNT 4.85 10^6/uL (4.35-5.55); RED CELL DISTRIBUTION WIDTH 13.7 % (11.5-14.0); SEGMENTED NEUTROPHILS % (AUTO) 60.2 % (42-78); TOTAL CELLS COUNTED % (AUTO) 100 %; WHITE BLOOD COUNT 6.7 10^3/uL (4.0-10.5)
[2019-04-05 23:20] LABS: INTERNATIONAL RATION (INR) 1.03; PROTHROMBIN TIME 13.5 SEC (11.4-15.4)
[2019-04-05 23:21] LABS: PARTIAL THROMBOPLASTIN TIME 31.8 SEC (23.5-35.8)
[2019-04-05 23:40] LABS: ALANINE AMINOTRANSFERASE 18 U/L (21-72); ALBUMIN 3.9 g/dL (3.5-5.0); ALKALINE PHOSPHATASE 57 U/L (38-126); ANION GAP 6 (5-19); ASPARTATE AMINO TRANSFERASE 13 U/L (17-59); BILIRUBIN,DIRECT 0.2 mg/dL (0.0-0.4); BILIRUBIN,TOTAL 0.4 mg/dL (0.2-1.3); BLOOD UREA NITROGEN 12 mg/dL (7-20); CALCIUM 9.7 mg/dL (8.4-10.2); CARBON DIOXIDE 27 mmol/L (22-30); CHLORIDE 102 mmol/L (98-107); GLUCOSE 101 mg/dL (75-110); POTASSIUM 4.3 mmol/L (3.6-5.0); SODIUM 135.3 mmol/L (137-145); TOTAL PROTEIN 6.2 g/dL (6.3-8.2)
--- NOTE | 2019-04-06 00:40 | RADIOLOGY REPORT (SQ) ---
CT ABDOMEN PELVIS WITHOUT IV CONTRAST EXAM DATE: 04/05/2019 11:56 PM CDT HISTORY: Back pain. Hematuria. COMPARISON: None. TECHNIQUE: CT scan of the abdomen and pelvis was performed without IV contrast. This exam was performed according to our departmental dose-optimization program, which includes automated exposure control, adjustment of the mA and/or kV according to patient size and/or use of iterative reconstruction technique. FINDINGS: The lung bases are clear. No pleural or pericardial effusions. Liver, gallbladder, spleen, pancreas, adrenal glands, and kidneys are normal. The pelvic organs are also normal. No hydronephrosis or urinary stones are seen. The appendix is not seen. No bowel obstruction or acute diverticulitis. No free fluid or free air. The aorta is normal caliber and contains atherosclerotic calcifications. No body wall hernia. Schmorl's node along the superior endplate of L2. IMPRESSION: No acute abdominal or pelvic pathology.
[2019-04-06 01:05] VITALS: BP 149/83
== END 2019-04-06 01:06 | disposition home or self-care (01) ==
LOC: ER 21:23
DX: R31.0 Gross hematuria (principal); R39.198 Other difficulties with micturition; M54.5 Low back pain; F17.200 Nicotine dependence, unspecified, uncomplicated; J44.9 Chronic obstructive pulmonary disease, unspecified
CPT/HCPCS: 36415; 74176; 80053; 81001; 85025; 85610; 85730; 87086; 99284